=== PATIENT | female | born 1950 | race Two or more races ===

== ENCOUNTER 2017-09-25 13:53 | Outpatient (CLI) | payer OTHER | END 2017-09-25 15:00 | disposition home or self-care (01) | LOC: SONOGRAMA 13:53 | DX: E04.1 Nontoxic single thyroid nodule (principal) ==

== ENCOUNTER 2017-10-11 14:10 | Outpatient (CLI) | payer OTHER | END 2017-10-11 14:23 | disposition home or self-care (01) | LOC: MAMO-SONO 14:10 | DX: Z12.31 Encounter for screening mammogram for malignant neoplasm of breast (principal); Z87.898 Personal history of other specified conditions; R10.2 Pelvic and perineal pain ==

== ENCOUNTER → 2019-02-24 | Outpatient (CLI) | payer OTHER | END | disposition home or self-care (01) | LOC: MAMO-SONO 09:45 → RAD 10:09 → SONOGRAMA 10:09 | DX: R10.84 Generalized abdominal pain (principal); M54.2 Cervicalgia ==

== ENCOUNTER 2019-03-08 11:18 | Outpatient (CLI) | payer OTHER | END 2019-03-08 11:23 | disposition home or self-care (01) | LOC: RAD 11:18 | DX: M51.36 Other intervertebral disc degeneration, lumbar region (principal) ==

== ENCOUNTER 2023-03-15 12:06 | Outpatient (CLI) | payer OTHER | END 2023-03-15 13:27 | disposition home or self-care (01) | LOC: RAD 12:06 | PROVIDERS: ATTEND Internal Medicine | DX: J40 Bronchitis, not specified as acute or chronic (principal) ==

== ENCOUNTER 2023-05-11 07:37 | Outpatient (CLI) | payer OTHER | END 2023-05-11 07:46 | disposition home or self-care (01) | LOC: TOM 07:37 | PROVIDERS: ATTEND Internal Medicine | DX: R31.9 Hematuria, unspecified (principal) ==